=== PATIENT | male | born 1955 | race Hispanic/Latino ===

== ENCOUNTER 2017-08-27 13:35 | Emergency (ER) | payer MEDICAID ==
[2017-08-27 13:45] VITALS: RESP 18; TEMP 99.4
[2017-08-27 13:46] VITALS: BMI 26.2
[2017-08-27] MEDS ORDERED: Morphine 4 mg/ml ISec IM STA (14:16)
--- NOTE | 2017-08-27 14:30 | ED PDOC ---
Arrival/HPI - General Chief Complaint: Hip Pain Time Seen by Provider: 08/27/17 14:15 Historian: Patient - History of Present Illness Narrative History of Present Illness (Text): 08/27/17 14:20 61 year old male, with past medical history of chronic back pain, Hepatitis B/C and COPD, presents to the emergency department complaining of left wrist, left hip and right shoulder discomfort s/p fall prior to arrival. Patient states he was walking outside when he suddenly tripped over a concrete "slab" and fell to the ground. Patient informs hitting his head but denies any headache or loss of consciousness. Patient states he was scheduled to take his prescribed oxycodone and morphine at 12pm but was unable to due to the fall. Patient now presents to the emergency department for medical attention for his pain. Patient denies any fever, nausea, vomiting, diarrhea, abdominal pain, chest pain, shortness of breath or any other complaints. Time/Duration: Prior to Arrival Symptom Onset: Sudden Symptom Course: Unchanged Quality: Aching Context: Street Past Medical History - Provider Review Nursing Documentation Reviewed: Yes - Infectious Disease Hx of Infectious Diseases: None - Tetanus Immunization Tetanus Immunization: Unknown - Cardiac Hx Cardiac Disorders: Yes Hx Hypertension: Yes - Pulmonary Hx Respiratory Disorders: Yes Hx Asthma: Yes Hx Emphysema: Yes - Neurological Hx Neurological Disorder: No - HEENT Hx HEENT Disorder: No - Renal Hx Renal Disorder: No - Endocrine/Metabolic Hx Endocrine Disorders: No - Hematological/Oncological Hx Blood Disorders: Yes Hx Hepatitis A: Yes Hx Hepatitis B: Yes Hx Hepatitis C: Yes - Integumentary Hx Dermatological Disorder: No - Musculoskeletal/Rheumatological Hx Musculoskeletal Disorders: Yes Hx Back Pain: Yes Hx Herniated Disk: Yes - Gastrointestinal Hx Gastrointestinal Disorders: Yes Hx Gastrointestinal Ulcer: Yes - Genitourinary/Gynecological Hx Genitourinary Disorders: No - Psychiatric Hx Psychophysiologic Disorder: Yes Hx Anxiety: Yes Hx Substance Use: No - Surgical History Hx Orthopedic Surgery: Yes (BACK) - Anesthesia Hx Anesthesia: No - Suicidal Assessment Feels Threatened In Home Enviroment: No Family/Social History - Physician Review Nursing Documentation Reviewed: Yes Family/Social History: No Known Family HX Smoking Status: Heavy Smoker > 10 Cigarettes Daily Hx Alcohol Use: No Hx Substance Use: No Hx Substance Use Treatment: No Allergies/Home Meds Allergies/Adverse Reactions: Allergies No Known Allergies Allergy (Verified 08/27/17 13:58) Home Medications: Home Meds Medication Instructions Recorded Confirmed Albuterol Sulfate [Albuterol 0.09 mg IH Q6 PRN 08/19/11 08/27/17 Sulfate Hfa] Diazepam [Valium] 10 mg PO BID 04/15/16 08/27/17 Morphine [Morphine Sulfate] 60 mg PO BID 04/15/16 08/27/17 oxyCODONE [oxyCODONE Immediate 30 mg PO TID 04/15/16 08/27/17 Release Tab] Review of Systems - Physician Review All systems were reviewed & negative as marked: Yes - Review of Systems Constitutional: absent: Fevers Respiratory: absent: SOB Cardiovascular: absent: Chest Pain Gastrointestinal: absent: Abdominal Pain, Diarrhea, Nausea, Vomiting Musculoskeletal: Other (left wrist, left hip and right shoulder pain.) Neurological: absent: Headache Physical Exam Vital Signs Reviewed: Yes Vital Signs Temp Pulse Resp BP Pulse Ox 08/27/17 15:35 75 18 118/65 96 08/27/17 13:45 99.4 F 79 18 116/69 95 Temperature: Afebrile Blood Pressure: Normal Pulse: Regular Respiratory Rate: Normal Appearance: Positive for: Well-Appearing, Non-Toxic, Comfortable Pain Distress: Mild Mental Status: Positive for: Alert and Oriented X 3, other (Patient was uncooperative with physical exam. Patient was lying prone and refused to lay supine position for proper physical exam.) - Systems Exam Head: Present: Atraumatic, Normocephalic Pupils: Present: PERRL Extroacular Muscles: Present: EOMI Conjunctiva: Present: Normal Respiratory/Chest: Present: Clear to Auscultation, Good Air Exchange. No: Respiratory Distress, Accessory Muscle Use Cardiovascular: Present: Regular Rate and Rhythm, Normal S1, S2. No: Murmurs Back: Present: Normal Inspection Upper Extremity: Present: NORMAL PULSES, Tenderness (tenderness to left wrist ) . No: Cyanosis, Edema, Swelling, Deformity Lower Extremity: Present: NORMAL PULSES, Tenderness (Tenderness to anterior aspect of left hip.). No: Edema, Deformity Neurological: Present: GCS=15, CN II-XII Intact, Speech Normal Skin: Present: Warm, Dry, Normal Color. No: Rashes Psychiatric: Present: Alert, Oriented x 3 Medical Decision Making ED Course and Treatment: 08/27/17 14:16 Impression: 61 year old male presents to the emergency department for left wrist , left hip and right shoulder pain s/p fall. Plan: -- CT of Head -- Morphine -- X-ray of left hip -- X-ray right shoulder -- X-ray of left wrist -- Reassess and disposition Prior Visits: Notes and results from previous visits were reviewed. Progress Notes: 4mg morphine IM given for pain. 08/27/17 15:30 CT of head reviewed by radiologist, shows no acute intracranial findings. 08/27/17 15:45 X-ray of left hip reviewed by radiologist, shows no acute findings. X-ray of right shoulder reviewed by radiologist, shows no acute findings. X-ray of left wrist reviewed by radiologist, shows normal radiographs. Patient re-evaluated. Imaging results discussed. Patient asking "why am I in pain" despite negative CT and xrays. Explained that falling could have caused sprains or contusions of his extremities. Advised continuing pain control at home (he is on oxycodone and morphine at home for chronic lower back pain). Patient advised to follow up with his PMD. - RAD Interpretation Radiology Orders: 08/27/17 14:16 HEAD W/O CONTRAST [CT] Stat HIP MIN 2V W/ PELVIS LT [RAD] Stat SHOULDER RIGHT [RAD] Stat WRIST, LEFT 3 VIEWS [RAD] Stat Interior Design Principal: Radiologist - Medication Orders Current Medication Orders: Discontinued Medications Morphine Sulfate (Morphine) 4 mg IM STAT STA Stop: 08/27/17 14:17 Last Admin: 08/27/17 14:25 Dose: 4 mg MAR Pain Assessment Document 08/27/17 14:25 ALANNA (Rec: 08/27/17 14:26 ALANNA [id number]) Pain Reassessment Is this a pain reassessment? Yes Presence of Pain Presence of Pain Yes Pain Scale Used Pain Scale Used Numeric Location Left, Right or Bilateral Left Pain Location Body Site Hip Description Description Sharp Intensity of Pain at present 8 IM Administration Charges Document 08/27/17 14:25 ALANNA (Rec: 08/27/17 14:26 ALANNA [id number]) Injection Site MAR Injection Site Right Deltoid Charges for Administration # of IM Administrations 1 - Scribe Statement The provider has reviewed the documentation as recorded by the Scribe Harmeet Leroy. All medical record entries made by the Scribe were at my direction and personally dictated by me. I have reviewed the chart and agree that the record accurately reflects my personal performance of the history, physical exam, medical decision making, and the department course for this patient. I have also personally directed, reviewed, and agree with the discharge instructions and disposition. Disposition/Present on Arrival - Present on Arrival Any Indicators Present on Arrival: No History of DVT/PE: No History of Uncontrolled Diabetes: No Urinary Catheter: No History of Decub. Ulcer: No History Surgical Site Infection Following: None - Disposition Have Diagnosis and Disposition been Completed?: Yes Diagnosis: Fall, Left wrist pain, Left hip pain, Right shoulder pain, Head injury, Chronic pain Disposition: HOME/ ROUTINE Disposition Time: 16:35 Condition: FAIR Discharge Instructions (ExitCare): Chronic Pain (DC), Contusion (DC) Additional Instructions: ANNA EAGLE, thank you for letting us take care of you today. Your provider was Nicole Fofana MD and you were treated for FALL. The emergency medical care you received today was directed at your acute symptoms. If you were prescribed any medication, please fill it and take as directed. It may take several days for your symptoms to resolve. Return to the Emergency Department if your symptoms worsen, do not improve, or if you have any other problems. Please contact your doctor or call one of the physicians/clinics you have been referred to that are listed on the Patient Visit Information form that is included in your discharge packet. Bring any paperwork you were given at discharge with you along with any medications you are taking to your follow up visit. Our treatment cannot replace ongoing medical care by a primary care provider outside of the emergency department. Thank you for allowing the [facility] team to be part of your care today. If you had an X-Ray or CT scan: A Radiologist will review the ED reading if any change in treatment is needed we will contact you. If you had a blood, urine, or wound culture: It will take several days for the results, if any change in treatment is needed we will contact you. If you had an STI test: It will take 48 hours for the results. Please call after 1 week if you have not heard back. Referrals: Scottie Renee MD [Primary Care Provider] - Follow up with primary Forms: [employer] (Japanese)
--- NOTE | 2017-08-27 15:25 | CT ---
Date of service: 08/27/2017 PROCEDURE: CT HEAD WITHOUT CONTRAST. HISTORY: pain COMPARISON: None available. TECHNIQUE: Axial computed tomography images were obtained through the head/brain without intravenous contrast. Radiation dose: Total exam DLP = 986 mGy-cm. This CT exam was performed using one or more of the following dose reduction techniques: Automated exposure control, adjustment of the mA and/or kV according to patient size, and/or use of iterative reconstruction technique. FINDINGS: HEMORRHAGE: No intracranial hemorrhage. BRAIN: No mass effect or edema. No atrophy or chronic microvascular ischemic changes. VENTRICLES: Unremarkable. No hydrocephalus. CALVARIUM: Unremarkable. PARANASAL SINUSES: Unremarkable as visualized. No significant inflammatory changes. MASTOID AIR CELLS: Unremarkable as visualized. No inflammatory changes. OTHER FINDINGS: None. IMPRESSION: No acute intracranial findings
--- NOTE | 2017-08-27 15:36 | RAD ---
Date of service: 08/27/2017 PROCEDURE: Left Wrist Radiographs. HISTORY: pain COMPARISON: None. FINDINGS: BONES: Normal. No fracture. JOINTS: Normal. No dislocation. SOFT TISSUES: Normal. OTHER FINDINGS: None. IMPRESSION: Normal left wrist radiographs.
--- NOTE | 2017-08-27 15:37 | RAD ---
PROCEDURE: Left Hip and pelvis X-ray Radiographs. HISTORY: pain COMPARISON: None. FINDINGS: BONES: Normal. No fracture. JOINTS: Normal. SOFT TISSUES: Normal. OTHER FINDINGS: None. IMPRESSION: Negative study
--- NOTE | 2017-08-27 15:38 | RAD ---
Date of service: 08/27/2017 PROCEDURE: Radiographs of the Right Shoulder HISTORY: pain COMPARISON: No prior. FINDINGS: BONES: Normal. No fracture. JOINTS: Normal. Glenohumeral and acromioclavicular joints preserved. No osteoarthritis. SOFT TISSUES: Normal. OTHER FINDINGS: None. IMPRESSION: Normal radiographs of the right shoulder.
[2017-08-27 15:59] VITALS: BP 118/65; PULSE 75; O2SAT 96
== END 2017-08-27 16:35 | disposition home or self-care (01) ==
LOC: ED 13:35
DX: S09.90XA Unspecified injury of head, initial encounter (principal); W01.0XXA Fall on same level from slipping, tripping and stumbling without subsequent striking against object, initial encounter; Y92.89 Other specified places as the place of occurrence of the external cause; M25.532 Pain in left wrist; M25.552 Pain in left hip; M25.511 Pain in right shoulder; G89.29 Other chronic pain
CPT/HCPCS: 70450; 73030; 73110; 73502; 96372; 99283; J2270

== ENCOUNTER 2018-03-06 15:31 | Emergency (ER) | payer MEDICAID ==
[2018-03-06 15:41] VITALS: BMI 25.0
[2018-03-06 15:48] VITALS: RESP 18
[2018-03-06] MEDS ORDERED: Oxycodone/Acetaminophen 5/325 mg Tab PO STA (16:07)
--- NOTE | 2018-03-06 16:51 | ED PDOC ---
Arrival/HPI - General Chief Complaint: Back Pain Time Seen by Provider: 03/06/18 15:41 Historian: Patient - History of Present Illness Narrative History of Present Illness (Text): 03/06/18 16:07 62 year old male, whose past medical history includes chronic back pain, Hepatitis B/C and COPD, who presents to the emergency department complaining of lower back pain for the past few days after falling forward a few days ago. Patient reports he was helping his get up, when he fell down a flight of stairs and hit his back on the last step. Patient states his pain medication is not working, noting he has told Dr. Bran (pain management). Patient notes he had the flu and has been taking medication, stating he is feeling better. Patient notes he is ambulatory with cane. Patient denies any loss of consciousness, head injuries or trauma, weakness, numbness, tingling, or any other complaints. PMD: Scottie Mcdowell Time/Duration: Other (pt notes onset as past few days, since fall) Symptom Onset: Sudden Symptom Course: Unchanged Context: Other (falling down a flight of stairs and hitting back) Past Medical History - Provider Review Nursing Documentation Reviewed: Yes - Infectious Disease Hx of Infectious Diseases: None - Tetanus Immunization Tetanus Immunization: Unknown - Cardiac Hx Cardiac Disorders: Yes Hx Hypertension: Yes - Pulmonary Hx Respiratory Disorders: Yes Hx Asthma: Yes Hx Emphysema: Yes - Neurological Hx Neurological Disorder: No - HEENT Hx HEENT Disorder: No - Renal Hx Renal Disorder: No - Endocrine/Metabolic Hx Endocrine Disorders: No - Hematological/Oncological Hx Blood Disorders: Yes Hx Hepatitis A: Yes Hx Hepatitis B: Yes Hx Hepatitis C: Yes - Integumentary Hx Dermatological Disorder: No - Musculoskeletal/Rheumatological Hx Musculoskeletal Disorders: Yes Hx Back Pain: Yes Hx Herniated Disk: Yes - Gastrointestinal Hx Gastrointestinal Disorders: Yes Hx Gastrointestinal Ulcer: Yes - Genitourinary/Gynecological Hx Genitourinary Disorders: No - Psychiatric Hx Psychophysiologic Disorder: Yes Hx Anxiety: Yes Hx Substance Use: No - Surgical History Hx Orthopedic Surgery: Yes (BACK) - Anesthesia Hx Anesthesia: No - Suicidal Assessment Feels Threatened In Home Enviroment: No Family/Social History - Physician Review Nursing Documentation Reviewed: Yes Family/Social History: No Known Family HX Smoking Status: Heavy Smoker > 10 Cigarettes Daily Hx Alcohol Use: No Hx Substance Use: No Hx Substance Use Treatment: No Allergies/Home Meds Allergies/Adverse Reactions: Allergies No Known Allergies Allergy (Verified 03/06/18 15:42) Home Medications: Home Meds Medication Instructions Recorded Confirmed Albuterol Sulfate [Albuterol 0.09 mg IH Q6 PRN 08/19/11 03/06/18 Sulfate Hfa] Diazepam [Valium] 10 mg PO BID 04/15/16 03/06/18 Morphine [Morphine Sulfate] 60 mg PO BID 04/15/16 03/06/18 oxyCODONE [oxyCODONE Immediate 30 mg PO TID 04/15/16 03/06/18 Release Tab] Review of Systems - Review of Systems Musculoskeletal: Back Pain (pt notes lower back pain for past few days ). absent: Normal Neurological: Normal. absent: Focal Weakness, Gait Changes Physical Exam Vital Signs Reviewed: Yes Vital Signs Temp Pulse Resp BP Pulse Ox 03/06/18 15:47 98.0 F 89 18 108/76 95 Temperature: Afebrile Blood Pressure: Normal Pulse: Regular Respiratory Rate: Normal Appearance: Positive for: Well-Appearing, Non-Toxic Pain Distress: Mild Mental Status: Positive for: Alert and Oriented X 3 - Systems Exam Head: Present: Atraumatic, Normocephalic Pupils: Present: PERRL Extroacular Muscles: Present: EOMI Conjunctiva: Present: Normal Mouth: Present: Moist Mucous Membranes Neck: Present: Normal Range of Motion Respiratory/Chest: Present: Clear to Auscultation, Good Air Exchange. No: Respiratory Distress, Accessory Muscle Use Cardiovascular: Present: Regular Rate and Rhythm, Normal S1, S2. No: Murmurs Abdomen: No: Tenderness, Distention, Peritoneal Signs Back: Present: Other (pinpoint tenderness to lumbar spine). No: Normal Inspection Upper Extremity: Present: Normal Inspection. No: Cyanosis, Edema Lower Extremity: Present: Normal Inspection. No: Edema Neurological: Present: GCS=15, CN II-XII Intact, Speech Normal Skin: Present: Warm, Dry, Normal Color. No: Rashes Psychiatric: Present: Alert, Oriented x 3, Normal Insight, Normal Concentration Medical Decision Making ED Course and Treatment: 03/06/18 16:07 Impression: 62 year old male who presents to the emergency department for lower back pain for past few days status post falling down a flight of stairs and hitting back on last step Plan: -- Percocet -- US of lumbar spine -- Reassess and disposition Prior Visits: Notes and results from previous visits were reviewed. Patient was last seen in the emergency department on 08/27/17 for left wrist, left hip and right shoulder discomfort s/p fall prior to arrival. Pt was discharged home in fair condition. Progress Notes: 03/06/18 18:06 IMPRESSION: Chronic T11 and L1 vertebral compression fracture. Suggestion of fractures at L2 and L3, although this may be related to obliquity. MRI can be obtained for further evaluation as clinically needed. 03/06/18 18:06 MRI unable to be performed today. patient has intractable pain. moving all extremities with normal bladder and bowel habits. Dr. Renee accepts for observation 03/06/18 18:11 Patient refusing to stay in the emergency department . He reports that he understands he could have a broken bone in his back. He reports "I know i broke my back again." He denies weakness, numbness,t ingling. He reports that he wants to go home and will take his morphine at home. 03/06/18 19:19 Patient ambulated out of Ed withuot issue. Leaving Against Medical Advice (AMA): The patient is choosing to leave against medical advice. I have personally explained to the patient that choosing to do so may result in permanent bodily harm, diability, or . I have discussed at great length that without further evaluation and monitoring there may be unforeseen circumstances and/or deterioration causing permanent bodily harm or as a result of their choice. The patient is alert, oriented, and shows the mental capacity to make clear decisions regarding the patients health care at this time. The patient continues to wish to leave against medical advice. In light of the patients decision to leave against medical advice, follow-up has been arranged and the patient is aware of the importance to following up as instructed. The patient has been advised that they should return to the emergency room immediately if they change their mind at any time, or if their condition begins to change or worsen in any way. - RAD Interpretation Radiology Orders: 03/06/18 16:06 LS SPINE WITH OBL > 18 YRS OLD [RAD] Stat - Medication Orders Current Medication Orders: Discontinued Medications Oxycodone/Acetaminophen (Percocet 5/325 Mg Tab) 1 tab PO STAT STA Stop: 03/06/18 16:08 Last Admin: 03/06/18 16:29 Dose: 1 tab MAR Pain Assessment Document 03/06/18 16:29 EQ (Rec: 03/06/18 16:29 EQ [id number]) Pain Reassessment Is this a pain reassessment? No Sleep Is patient sleeping during reassessment? No Presence of Pain Presence of Pain Yes - Scribe Statement The provider has reviewed the documentation as recorded by the Scribe Rina Montero All medical record entries made by the Scribe were at my direction and personally dictated by me. I have reviewed the chart and agree that the record accurately reflects my personal performance of the history, physical exam, medical decision making, and the department course for this patient. I have also personally directed, reviewed, and agree with the discharge instructions and disposition. Disposition/Present on Arrival - Present on Arrival Any Indicators Present on Arrival: No History of DVT/PE: No History of Uncontrolled Diabetes: No Urinary Catheter: No History of Decub. Ulcer: No History Surgical Site Infection Following: None - Disposition Have Diagnosis and Disposition been Completed?: Yes Diagnosis: Fracture of lumbar spine, Intractable back pain, Left against medical advice Disposition: AGAINST MEDICAL ADVICE Disposition Time: 18:07 Patient Plan: Observation Patient Problems: Current Active Problems Problem Status Onset Fracture of lumbar spine Acute Intractable back pain Acute Left against medical advice Acute Condition: FAIR Additional Instructions: Return immediately if you want further evaluation and treatment of back pain. You are risk for permanent disability, paralysis, and . Forms: [employer] (Ukrainian)
--- NOTE | 2018-03-06 17:37 | RAD ---
Date of service: 03/06/2018 PROCEDURE: Radiographs of the Lumbar Spine. HISTORY: back pain COMPARISON: Lumbar spine radiographs dated 10/13/2016. FINDINGS: BONES: Normal alignment. No listhesis. Compression fracture of T11 and L1 redemonstrated. Suggestion of progressive superior L3 endplate depression, although this may be related to obliquity. Similarly, suggestion of L2 vertebral compression, although this also may be related to obliquity. DISC SPACES: Multilevel disc space narrowing. OTHER FINDINGS: None. IMPRESSION: Chronic T11 and L1 vertebral compression fracture. Suggestion of fractures at L2 and L3, although this may be related to obliquity. MRI can be obtained for further evaluation as clinically needed.
[2018-03-06] MEDS ORDERED: Morphine 4 mg/ml ISec IVP STA (17:47)
[2018-03-06 19:00] VITALS: BP 110/73; PULSE 85; TEMP 98.1; O2SAT 97
== END 2018-03-06 18:40 | disposition left against medical advice (07) ==
LOC: ED 15:31
DX: S22.089A Unspecified fracture of T11-T12 vertebra, initial encounter for closed fracture (principal); S32.019A Unspecified fracture of first lumbar vertebra, initial encounter for closed fracture; W10.9XXA Fall (on) (from) unspecified stairs and steps, initial encounter

== ENCOUNTER 2018-03-08 08:23 | Emergency (ER) | payer MEDICAID ==
[2018-03-08 08:23] VITALS: BMI 25.0
[2018-03-08 08:38] VITALS: TEMP 98.6
[2018-03-08 09:07] VITALS: BP 169/95; PULSE 96; RESP 18; O2SAT 95
--- NOTE | 2018-03-08 09:33 | ED PDOC ---
Arrival/HPI - General Chief Complaint: Back Pain Time Seen by Provider: 03/08/18 08:44 Historian: Patient - History of Present Illness Narrative History of Present Illness (Text): 03/08/18 09:32 A 62 year old male, whose past medical history includes chronic back pain, Hepatitis B/C and COPD, presents to the emergency department for an MRI of the back. Patient was seen 2 days ago in the ER for a lower back pain and was admitted with an MRI planned but the patient left against medical advice. Patient has returned to complete the MRI procedure. Patient reports no new injuries since he was last seen and denies any fever, urinary symptoms, or any other complaints. PMD: Dr. Renee Symptom Onset: Gradual Symptom Course: Unchanged Activities at Onset: Light Context: Home Past Medical History - Provider Review Nursing Documentation Reviewed: Yes - Infectious Disease Hx of Infectious Diseases: None - Tetanus Immunization Tetanus Immunization: Unknown - Cardiac Hx Cardiac Disorders: Yes Hx Hypertension: Yes - Pulmonary Hx Respiratory Disorders: Yes Hx Asthma: Yes Hx Emphysema: Yes - Neurological Hx Neurological Disorder: No - HEENT Hx HEENT Disorder: No - Renal Hx Renal Disorder: No - Endocrine/Metabolic Hx Endocrine Disorders: No - Hematological/Oncological Hx Blood Disorders: Yes Hx Hepatitis A: Yes Hx Hepatitis B: Yes Hx Hepatitis C: Yes - Integumentary Hx Dermatological Disorder: No - Musculoskeletal/Rheumatological Hx Musculoskeletal Disorders: Yes Hx Back Pain: Yes Hx Herniated Disk: Yes - Gastrointestinal Hx Gastrointestinal Disorders: Yes Hx Gastrointestinal Ulcer: Yes - Genitourinary/Gynecological Hx Genitourinary Disorders: No - Psychiatric Hx Psychophysiologic Disorder: Yes Hx Anxiety: Yes Hx Substance Use: No - Surgical History Hx Orthopedic Surgery: Yes (BACK) - Anesthesia Hx Anesthesia: No Hx Anesthesia Reactions: No Hx Malignant Hyperthermia: No - Suicidal Assessment Feels Threatened In Home Enviroment: No Family/Social History - Physician Review Nursing Documentation Reviewed: Yes Family/Social History: No Known Family HX Smoking Status: Heavy Smoker > 10 Cigarettes Daily Hx Alcohol Use: No Hx Substance Use: No Hx Substance Use Treatment: No Allergies/Home Meds Allergies/Adverse Reactions: Allergies No Known Allergies Allergy (Verified 03/08/18 08:38) Home Medications: Home Meds Medication Instructions Recorded Confirmed RX: Albuterol Sulfate [Albuterol 0.09 mg IH Q6 PRN 08/19/11 03/06/18 Sulfate Hfa] Diazepam [Valium] 10 mg PO BID 04/15/16 03/06/18 Morphine [Morphine Sulfate] 60 mg PO BID 04/15/16 03/06/18 RX: oxyCODONE [oxyCODONE Immediate 30 mg PO TID 04/15/16 03/06/18 Release Tab] Review of Systems - Physician Review All systems were reviewed & negative as marked: Yes - Review of Systems Constitutional: absent: Fevers Genitourinary Male: absent: Urinary Output Changes Physical Exam - Physical Exam Narrative Physical Exam (Text): 03/08/18 09:32 Constitutional: No acute distress. Head: Normocephalic. Atraumatic. Eyes: PERRL. ENT: Moist mucous membranes. Neck: Supple. Cardiovascular: Regular rate. Chest: No tenderness. Respiratory: Clear to auscultation bilaterally. GI: Soft. Nontender. Nondistended. Back: Pinpoint tenderness to lumbar spine. Musculoskeletal: No tenderness or swelling of extremities. Skin: No rash. Neurologic: Alert, no focal deficit. Vital Signs Reviewed: Yes Vital Signs Temp Pulse Resp BP Pulse Ox 03/08/18 09:00 96 H 18 169/95 H 95 03/08/18 08:35 98.6 F 102 H 20 126/81 98 Temperature: Afebrile Blood Pressure: Normal Pulse: Tachycardic Respiratory Rate: Normal Medical Decision Making ED Course and Treatment: 03/08/18 09:32 Impression: 62 year old male presenting to the emergency department for MRI of the back. Plan: -- CMP -- CBC -- MRI of Lumbar spine -- Reassess and disposition Prior Visits: Notes and results from previous visits were reviewed. Progress Notes: Dr. Plunkett accepts patient to hospitalist service. - Scribe Statement The provider has reviewed the documentation as recorded by the Nir Mata All medical record entries made by the Scribe were at my direction and personally dictated by me. I have reviewed the chart and agree that the record accurately reflects my personal performance of the history, physical exam, medical decision making, and the department course for this patient. I have also personally directed, reviewed, and agree with the discharge instructions and disposition. Disposition/Present on Arrival - Present on Arrival Any Indicators Present on Arrival: No History of DVT/PE: No History of Uncontrolled Diabetes: No Urinary Catheter: No History of Decub. Ulcer: No History Surgical Site Infection Following: None - Disposition Have Diagnosis and Disposition been Completed?: Yes Diagnosis: Back pain Disposition: HOSPITALIZED Disposition Time: 09:05 Patient Plan: Observation Condition: STABLE
--- NOTE | 2018-03-08 11:27 | MRI ---
Date of service: 03/08/2018 PROCEDURE: MR LUMBAR SPINE WITHOUT CONTRAST HISTORY: possible lumbar vertebral fractures COMPARISON: None available. TECHNIQUE: Multiecho multiplanar sequences were performed through the lumbar spine without the use of intravenous contrast. FINDINGS: Normal lumbar lordosis. There is a chronic compression fracture of L1 with normal marrow signal intensity. There is marrow edema in the inferior half of L2 consistent with an acute compression fracture. There is only a mild degree of compression Conus medullaris unremarkable at the level of Paraspinal soft tissues are unremarkable. T12-L1: No disc herniation, spinal canal stenosis or neural foraminal narrowing. L1-2: No disc herniation, spinal canal stenosis or neural foraminal narrowing. L2-3: No disc herniation, spinal canal stenosis or neural foraminal narrowing. Mild facet arthropathy. L3-4: No disc herniation, spinal canal stenosis or neural foraminal narrowing. Mild to moderate facet arthropathy left greater than right L4-5: There is a disc bulge at L4-5 asymmetric to the left with severe left-sided foraminal stenosis. There is also severe facet arthropathy left greater than right L5-S1: No disc herniation, spinal canal stenosis or neural foraminal narrowing. OTHER FINDINGS: None. IMPRESSION: There is a chronic compression fracture of L1 with normal marrow signal intensity. There is marrow edema in the inferior half of L2 consistent with an acute compression fracture. There is only a mild degree of compression There is a disc bulge at L4-5 asymmetric to the left with severe left-sided foraminal stenosis. There is also severe facet arthropathy left greater than right
--- NOTE | 2018-03-08 11:35 | CP.PCM.HP ---
History of Present Illness - History of Present Illness History of Present Illness: Barbara Vallejo, PGY-1 Medicine H&P Note for Dr. Galloway: CC: MRI for back pain Pt is a 62 yo M with pmhx of chronic back pain, Hepatitis B/C and COPD who presents to the ED for MRI of the back. Pt states that he was here in the ED a few days ago on 03/06 for back pain which he had gotten an X-ray for and the xray showed Chronic T11 and L1 vertebral compression fracture. Suggestions of fractures @ L2 and L3. MRI can be obtained for further eval as clinically needed. Pt had intractable back pain but no numbness, tingling and no saddle anesthesia or bladder/bowel incontinence noted on initial on 03/06. Pt was admitted for MRI and further treatment but pt signed out AMA. Pt now returned to ED for MRI, which was done and the pt is now admitted for further work up and clearance for d/c pending MRI read. At this time the pt states that his back pain is the same as it was on 03/06. He reports that on 03/06 he fell down some stairs attempting to help his . Pt reports no new injury and continued to deny any bladder or bowel incontinence, and denies saddle anesthesia. He also denies any numbness, tingling, weakness in any extremity. He states that he is able to ambulate with cane as he has previously and has no newly noted diffi culty. He states that the only thing wrong with him is that he has the pain in his lower back. He denies fevers, chills, lightheadedness, headaches, weakness, numbness, tingling, chest pain, SOB, cough, abd pain, n/v, c/d, dysuria or hematuria, bladder or bowel incontinence. Pmhx:chronic back pain, Hepatitis B/C and COPD Pshx: Denies All: NKDA Soc: 1/2ppd smoker, denies EtOH or illicit drug use Fam Hx: Non-contributory Present on Admission - Present on Admission Any Indicators Present on Admission: No Review of Systems - Review of Systems Review of Systems: 12 point ROS reviewed and negative except noted in HPI above. Past Patient History - Infectious Disease Hx of Infectious Diseases: None - Tetanus Immunizations Tetanus Immunization: Unknown - Past Social History Smoking Status: Heavy Smoker > 10 Cigarettes Daily - CARDIAC Hx Cardiac Disorders: Yes Hx Hypertension: Yes - PULMONARY Hx Respiratory Disorders: Yes Hx Asthma: Yes Hx Emphysema: Yes - NEUROLOGICAL Hx Neurological Disorder: No - HEENT Hx HEENT Problems: No - RENAL Hx Chronic Kidney Disease: No - ENDOCRINE/METABOLIC Hx Endocrine Disorders: No - HEMATOLOGICAL/ONCOLOGICAL Hx Blood Disorders: Yes Hx Hepatitis A: Yes Hx Hepatitis B: Yes Hx Hepatitis C: Yes - INTEGUMENTARY Hx Dermatological Problems: No - MUSCULOSKELETAL/RHEUMATOLOGICAL Hx Musculoskeletal Disorders: Yes Hx Back Pain: Yes Hx Herniated Disk: Yes - GASTROINTESTINAL Hx Gastrointestinal Disorders: Yes - GENITOURINARY/GYNECOLOGICAL Hx Genitourinary Disorders: No - PSYCHIATRIC Hx Psychophysiologic Disorder: Yes Hx Anxiety: Yes Hx Substance Use: No - SURGICAL HISTORY Hx Orthopedic Surgery: Yes (BACK) - ANESTHESIA Hx Anesthesia: No Hx Anesthesia Reactions: No Hx Malignant Hyperthermia: No Meds Allergies/Adverse Reactions: Allergies Allergy/AdvReac Type Severity Reaction Status Date / Time No Known Allergies Allergy Verified 03/08/18 08:38 Physical Exam - Constitutional Appears: Non-toxic, No Acute Distress, Other (uncomfortable) - Head Exam Head Exam: ATRAUMATIC, NORMAL INSPECTION, NORMOCEPHALIC - Eye Exam Eye Exam: EOMI, Normal appearance, PERRL - Respiratory Exam Respiratory Exam: Clear to Auscultation Bilateral, Rales, NORMAL BREATHING PATTERN. absent: Accessory Muscle Use, Rhonchi, Wheezes, Respiratory Distress, Stridor - Cardiovascular Exam Cardiovascular Exam: RRR, +S1, +S2. absent: Gallop, Rubs - Extremities Exam Extremities exam: Positive for: normal capillary refill, normal inspection. Negative for: calf tenderness, pedal edema, tenderness - Back Exam Back exam: paraspinal tenderness (present in the lumbar region, closely related to T11 - T1, there was no associated numbness, tingling on exam during palpation.). absent: CVA tenderness (L), CVA tenderness (R), vertebral tenderness - Neurological Exam Neurological exam: Alert, Oriented x3 - Psychiatric Exam Psychiatric exam: Normal Affect, Normal Mood - Skin Skin Exam: Dry, Intact, Normal Color Results - Vital Signs Recent Vital Signs: Last Vital Signs Temp 98.6 F 03/08/18 08:35 Pulse 96 H 03/08/18 09:00 Resp 18 03/08/18 09:00 BP 169/95 H 03/08/18 09:00 Pulse Ox 95 03/08/18 09:00 Assessment & Plan - Assessment and Plan (Free Text) Assessment: Pt is a 62 yo M with pmhx of chronic back pain, Hepatitis B/C and COPD who presents to the ED for MRI of the back. Pt signed out AMA right after the exam. Plan: 1) Acute on chronic back pain: - Pt reported ED visit on 03/06 which he signed out AMA. Lumbar XR showed: Chronic T11 and L1 vertebral compression fracture. Suggestion of fractures at L2 and L3, although this may be related to obliquity. MRI can be obtained for further evaluation as clinically needed. - Pt had MRI taken, pending official read - Neuro will be consulted - Pain medication PRN 2) Hx of Hep B/C: - LFTs stable at this time will cont to monitor 3) Hx of COPD: - Duonebs q6 PRN - Pt has no acute complaints at this time - Pt signed out AMA, explained to the pt the risks vs benefits of signing out AMA. Pt was explained that he could be at risk of further neurological damage and worsening of back pain, leading to numbness and potential irreversible neurologic disability and potentially . Pt is AOx3 and states that he understands the risks vs benefits of staying in the hospital for further work up vs going home and still insists on leaving AMA.
== END 2018-03-08 11:33 | disposition left against medical advice (07) ==
LOC: ED 08:23 → ERH 09:37 → UNDOADMOB 09:37 → ERH 10:17
DX: M54.5 Low back pain (principal); I10 Essential (primary) hypertension; J44.9 Chronic obstructive pulmonary disease, unspecified; F17.210 Nicotine dependence, cigarettes, uncomplicated; B19.20 Unspecified viral hepatitis C without hepatic coma

== ENCOUNTER 2018-05-27 14:28 | Emergency (ER) | payer MEDICAID ==
[2018-05-27 14:32] VITALS: BMI 26.6
[2018-05-27 14:50] VITALS: RESP 18; O2SAT 96
--- NOTE | 2018-05-27 14:53 | ED PDOC ---
Arrival/HPI - General Chief Complaint: Substance Abuse Time Seen by Provider: 05/27/18 14:35 Historian: Patient, EMS - History of Present Illness Narrative History of Present Illness (Text): 05/27/18 14:54 62 year old M with pmh of chronic back pain, Hepatitis B/C and COPD presents via EMS for substance abuse. Per EMS, patient was reported sleeping in park and started walking with an unsteady gait when EMS arrived. Patient endorses taking morphine today for chronic back pain. 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 Patient denies any fevers, chills, headache, dizziness, chest pain, shortness of breath, dyspnea on exertion, cough, abdominal pain, nausea, vomiting, diarrhea, neck pain, or any other complaint. Time/Duration: Prior to Arrival Symptom Onset: Sudden Symptom Course: Unchanged Activities at Onset: Light Context: Other (park) Past Medical History - Provider Review Nursing Documentation Reviewed: Yes - Infectious Disease Hx of Infectious Diseases: None - Tetanus Immunization Tetanus Immunization: Unknown - Cardiac Hx Cardiac Disorders: Yes Hx Hypertension: Yes - Pulmonary Hx Respiratory Disorders: Yes Hx Asthma: Yes Hx Emphysema: Yes - Neurological Hx Neurological Disorder: No - HEENT Hx HEENT Disorder: No - Renal Hx Renal Disorder: No - Endocrine/Metabolic Hx Endocrine Disorders: No - Hematological/Oncological Hx Blood Disorders: Yes Hx Hepatitis A: Yes Hx Hepatitis B: Yes Hx Hepatitis C: Yes - Integumentary Hx Dermatological Disorder: No - Musculoskeletal/Rheumatological Hx Musculoskeletal Disorders: Yes Hx Back Pain: Yes Hx Herniated Disk: Yes - Gastrointestinal Hx Gastrointestinal Disorders: Yes - Genitourinary/Gynecological Hx Genitourinary Disorders: No - Psychiatric Hx Psychophysiologic Disorder: Yes Hx Anxiety: Yes Hx Substance Use: No - Surgical History Hx Orthopedic Surgery: Yes (BACK) - Anesthesia Hx Anesthesia: Yes Hx Anesthesia Reactions: No Hx Malignant Hyperthermia: No - Suicidal Assessment Feels Threatened In Home Enviroment: No Family/Social History - Physician Review Nursing Documentation Reviewed: Yes Family/Social History: Unknown Family HX Smoking Status: Heavy Smoker > 10 Cigarettes Daily Hx Alcohol Use: No Hx Substance Use: No Hx Substance Use Treatment: No Allergies/Home Meds Allergies/Adverse Reactions: Allergies No Known Allergies Allergy (Verified 03/08/18 08:38) Home Medications: Home Meds Medication Instructions Recorded Confirmed Albuterol Sulfate [Albuterol 0.09 mg IH Q6 PRN 08/19/11 03/06/18 Sulfate Hfa] Diazepam [Valium] 10 mg PO BID 04/15/16 03/06/18 Morphine [Morphine Sulfate] 60 mg PO BID 04/15/16 03/06/18 oxyCODONE [oxyCODONE Immediate 30 mg PO TID 04/15/16 03/06/18 Release Tab] Review of Systems - Review of Systems Constitutional: absent: Fevers ENT: absent: Sore Throat Respiratory: absent: SOB, Cough Cardiovascular: absent: Chest Pain, Palpitations Gastrointestinal: absent: Abdominal Pain, Diarrhea, Nausea, Vomiting Genitourinary Male: absent: Dysuria Musculoskeletal: Back Pain (chronic) Neurological: absent: Headache, Dizziness Physical Exam Vital Signs Reviewed: Yes Vital Signs Temp Pulse Resp BP Pulse Ox 05/27/18 14:48 97.2 F L 72 18 131/81 96 Temperature: Afebrile Blood Pressure: Normal Pulse: Regular Respiratory Rate: Normal Appearance: Positive for: Non-Toxic, Comfortable, Unkept, Other (disheveled) Pain Distress: None Mental Status: Positive for: Alert and Oriented X 3 - Systems Exam Head: Present: Atraumatic, Normocephalic Pupils: Present: PERRL Extroacular Muscles: Present: EOMI Conjunctiva: Present: Normal Mouth: Present: Moist Mucous Membranes Neck: Present: Normal Range of Motion Respiratory/Chest: Present: Clear to Auscultation, Good Air Exchange. No: Respiratory Distress, Accessory Muscle Use Cardiovascular: Present: Regular Rate and Rhythm, Normal S1, S2. No: Murmurs Abdomen: No: Tenderness, Distention, Peritoneal Signs Back: Present: Normal Inspection Upper Extremity: Present: Normal Inspection. No: Cyanosis, Edema Lower Extremity: Present: Normal Inspection. No: Edema Neurological: Present: GCS=15, CN II-XII Intact, Speech Normal Skin: Present: Warm, Dry, Normal Color. No: Rashes Psychiatric: Present: Alert, Oriented x 3, Normal Insight, Normal Concentration. No: Suicidal Ideation, Homicidal Ideation Medical Decision Making ED Course and Treatment: 05/27/18 14:52 Impression: 62 year old M presents via EMS for substance abuse. Per EMS, patient was reported sleeping in park and started walking with an unsteady gait when EMS arrived. Patient endorses taking morphine today for chronic back pain. 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 Plan: -- Finger stick -- Reassess and disposition Prior Visits: Notes and results from previous visits were reviewed. Patient was last seen in the emergency department on Progress Notes: 05/27/18 14:57 Monitor for sobriety 05/27/18 15:46 Patient has been monitored for >1 hour. He has had no respiratory depression, somnolence or need for narcan. He is AAox3 and without somatic complaints and requesting to be discharged. He is ambulating around ED with steady gait. He denies SI/HI and does not want to speak to psych. He is requesting discharge. Attempted to educate him on misuse of prescription opiods and abuse behaviors. - Scribe Statement The provider has reviewed the documentation as recorded by the Nir Ellison All medical record entries made by the Scribe were at my direction and personally dictated by me. I have reviewed the chart and agree that the record a ccurately reflects my personal performance of the history, physical exam, medical decision making, and the department course for this patient. I have also personally directed, reviewed, and agree with the discharge instructions and disposition. Disposition/Present on Arrival - Present on Arrival Any Indicators Present on Arrival: No History of DVT/PE: No History of Uncontrolled Diabetes: No Urinary Catheter: No History of Decub. Ulcer: No History Surgical Site Infection Following: None - Disposition Have Diagnosis and Disposition been Completed?: Yes Diagnosis: Opioid use disorder Disposition: HOME/ ROUTINE Disposition Time: 15:44 Patient Plan: Discharge Condition: GOOD Discharge Instructions (ExitCare): Drug Abuse and Drug Addiction (DC), Prescription Drug Misuse Additional Instructions: Follow-up with PMD within 2 days. Avoid excessive use of opiods. Return to ED if condition worsens. Forms: [employer] (Sinhala)
[2018-05-27 15:57] VITALS: BP 110/75; PULSE 77; TEMP 98
== END 2018-05-27 15:58 | disposition home or self-care (01) ==
LOC: ED 14:28
DX: F11.90 Opioid use, unspecified, uncomplicated (principal)